=== PATIENT | female | born 1945 ===

== ENCOUNTER 2022-04-06 10:45 | Inpatient (IN) | payer OTHER ==
[~2022-04-06] VITALS: Ht 149.9 cm; Wt 78.0 kg
[2022-04-06] MEDS ORDERED: AVAPRO75 MG PO (14:48)
[2022-04-13] MEDS ORDERED: OMEPRAZOLE20 MG (08:02)
[2022-04-13] MEDS ORDERED: MAXIMUM D3325 MCG (08:02)
[2022-04-13] MEDS ORDERED: PRAVASTATIN SOD20 MG (08:02)
[2022-04-13] MEDS ORDERED: CORTISPORIN EAR10 M1 (08:02)
[2022-04-13] MEDS ORDERED: TELMISARTAN-HC1 EACH (08:02)
[2022-04-13] MEDS ORDERED: PENTOXIFYLLINE400 MG (08:02)
[2022-04-13] MEDS ORDERED: GABAPENTIN300 M2 (08:02)
[2022-04-13] MEDS ORDERED: CVS SPECTRAVIT (08:02)
[2022-04-15] MEDS ORDERED: ELIQUIS2.5 MG PO (08:28)
[2022-04-15] MEDS ORDERED: DUI500 PO (08:28)
[2022-04-15] MEDS ORDERED: PERCOCET 5-3251 EACH PO (08:28)
== END 2022-04-15 16:33 | DRG 470 ==
LOC: O/R 04-12 09:43 → SURG 04-12 09:43 → SURH 04-12 10:00 → SURG 04-12 16:44
PROVIDERS: ADMIT Orthopaedic Surgery; ATTEND Orthopaedic Surgery
PROC: 0SRC0J9 Replacement of Right Knee Joint with Synthetic Substitute, Cemented, Open Approach (ICD-10-PCS; principal; 2022-04-12 10:00)
DX: M17.11 Unilateral primary osteoarthritis, right knee (principal); M22.11 Recurrent subluxation of patella, right knee; I10 Essential (primary) hypertension; E66.8 Other obesity